=== PATIENT | female | born 1940 | race Caucasian/White ===

== ENCOUNTER 2016-10-29 16:01 | Inpatient (IN) | payer OTHER, MEDICARE ==
[~2016-10-29] VITALS: Ht 167.6 cm; Wt 97.5 kg
[2016-10-29 16:08] VITALS: BP 129/80; PULSE 101; RESP 20; TEMP 99.1; O2SAT 97
[2016-10-29] MEDS ORDERED: SODIUM CHLOR 0.9% 1000 ML INJ 1,000 ML IV SCH ×2 (16:12→18:00)
[2016-10-29] MEDS ORDERED: PANTOPRAZOLE INJ 80 MG in SODIUM CHLORIDE 0.9% INJ 35 ML IV ONE (16:15)
[2016-10-29] MEDS ORDERED: SODIUM CHLORIDE 0.9% FLUSH 5 ML FLUSH IVF PRN (16:15)
[2016-10-29] MEDS ORDERED: LEVO.1 PO (16:15)
[2016-10-29] MEDS ORDERED: LISI-515 PO (16:15)
--- NOTE | 2016-10-29 16:24 | PD ---
HPI Chief Complaint: GI Complaint Time Seen by Provider: 16:12 Travel History International Travel<30 days: No Contact w/Intl Traveler<30days: No Traveled to known affect area: No History of Present Illness HPI 76-year-old female with history of previous GI bleed, previous hernia surgeries with mesh, presents to the ER today because she states that she started having red blood in her stools and bleeding from the rectum starting on Saturday, now is having darker colored blood, melena. She denies any abdominal pain, fevers, vomiting, or other symptoms. She states that she has been having some mild dyspnea on exertion recently. Patient also states that she had seen Dr. bill last week and he had ordered a CT scan on her for evaluation of left lower quadrant abdominal pain where she has her mesh. However, she did not get a chance to go. Modifying Factors: None Associated Signs & Symptoms: Red blood in the stools, GI bleeding Risk Factors: Previous history of GI bleeding PFSH Past Medical History ?: Not Social History Tobacco Use: No Allergies-Medications (Allergen,Severity, Reaction): Coded Allergies: Demerol (Verified Allergy, Severe, Seizures, 10/29/16) Reported Meds & Prescriptions Reported Meds & Active Scripts Active Reported Synthroid (Levothyroxine Sodium) 100 Mcg Tab 100 Mcg PO DAILY Lisinopril 20 Mg Tab 20 Mg PO DAILY Review of Systems Except as stated in HPI: all other systems reviewed are Neg Physical Exam Narrative GENERAL: Well-nourished, well-developed elderly white female patient in no acute distress. SKIN: Warm and dry. HEAD: Normocephalic. EYES: No scleral icterus. No injection or drainage. Pale conjunctiva. NECK: Supple, trachea midline. CARDIOVASCULAR: Regular rate and rhythm without murmurs, gallops, or rubs. RESPIRATORY: Breath sounds equal bilaterally. No accessory muscle use. GASTROINTESTINAL: Abdomen soft, non-tender, nondistended. RECTAL EXAM: No masses or tenderness, stool is maroon, Hemoccult-positive. MUSCULOSKELETAL: No cyanosis, or edema. BACK: Nontender without obvious deformity. No CVA tenderness. Data Data Last Documented VS Vital Signs Date Time Temp Pulse Resp B/P Pulse Ox O2 Delivery O2 Flow Rate FiO2 10/29/16 16:17 20 10/29/16 16:08 99.1 101 129/80 97 Orders Electrocardiogram (10/29/16 ) Complete Blood Count With Diff (10/29/16 16:12) Comprehensive Metabolic Panel (10/29/16 16:12) Lipase (10/29/16 16:12) Prothrombin Time / Inr (Pt) (10/29/16 16:12) Act Partial Throm Time (Ptt) (10/29/16 16:12) Type And Screen (10/29/16 16:12) Ecg Monitoring (10/29/16 16:12) Iv Access Insert/Monitor (10/29/16 16:12) Oximetry (10/29/16 16:12) Sodium Chlor 0.9% 1000 Ml Inj (Ns 1000 M (10/29/16 16:12) Sodium Chloride 0.9% Flush (Ns Flush) (10/29/16 16:15) Pantoprazole Inj (Protonix Inj) (10/29/16 16:15) Pantoprazole Inj (Protonix Inj) (10/29/16 16:15) Red Blood Cells (Rbc) (10/29/16 17:52) Blood Product Administration .UPON TRANSFUSION (10/29/16 17:52) Sodium Chlor 0.9% 250 Ml Inj (Ns 250 Ml (10/29/16 18:00) Admit Order (Ed Use Only) (10/29/16 17:57) Labs Laboratory Tests Test 10/29/16 16:15 White Blood Count 12.8 TH/MM3 Red Blood Count 2.17 MIL/MM3 Hemoglobin 6.6 GM/DL Hematocrit 20.1 % Mean Corpuscular Volume 92.3 FL Mean Corpuscular Hemoglobin 30.5 PG Mean Corpuscular Hemoglobin 33.1 % Concent Red Cell Distribution Width 13.3 % Platelet Count 249 TH/MM3 Mean Platelet Volume 9.4 FL Neutrophils (%) (Auto) 78.0 % Lymphocytes (%) (Auto) 15.0 % Monocytes (%) (Auto) 6.3 % Eosinophils (%) (Auto) 0.3 % Basophils (%) (Auto) 0.4 % Neutrophils # (Auto) 10.0 TH/MM3 Lymphocytes # (Auto) 1.9 TH/MM3 Monocytes # (Auto) 0.8 TH/MM3 Eosinophils # (Auto) 0.0 TH/MM3 Basophils # (Auto) 0.0 TH/MM3 CBC Comment DIFF FINAL Differential Comment Prothrombin Time 10.3 SEC Prothromb Time International 0.9 RATIO Ratio Activated Partial 23.6 SEC Thromboplast Time Sodium Level 134 MEQ/L Potassium Level 4.0 MEQ/L Chloride Level 100 MEQ/L Carbon Dioxide Level 23.1 MEQ/L Anion Gap 11 MEQ/L Blood Urea Nitrogen 30 MG/DL Creatinine 0.97 MG/DL Estimat Glomerular Filtration 56 ML/MIN Rate Random Glucose 166 MG/DL Calcium Level 7.1 MG/DL Protein Corrected Calcium 7.7 MG/DL Total Bilirubin 0.1 MG/DL Aspartate Amino Transf 12 U/L (AST/SGOT) Alanine Aminotransferase 22 U/L (ALT/SGPT) Alkaline Phosphatase 52 U/L Total Protein 5.9 GM/DL Albumin 3.1 GM/DL Lipase 147 U/L Blood Type O NEGATIVE Antibody Screen NEGATIVE Blood Bank Comment MDM Medical Decision Making Medical Screen Exam Complete: Yes Emergency Medical Condition: Yes Medical Record Reviewed: Yes Interpretation(s) Laboratory Tests Test 10/29/16 16:15 White Blood Count 12.8 TH/MM3 (4.0-11.0) Red Blood Count 2.17 MIL/MM3 (4.00-5.30) Hemoglobin 6.6 GM/DL (11.6-15.3) Hematocrit 20.1 % (35.0-46.0) Neutrophils (%) (Auto) 78.0 % (16.0-70.0) Neutrophils # (Auto) 10.0 TH/MM3 (1.8-7.7) Activated Partial 23.6 SEC Thromboplast Time (24.3-30.1) Sodium Level 134 MEQ/L (136-145) Blood Urea Nitrogen 30 MG/DL (7-18) Estimat Glomerular Filtration 56 ML/MIN (>89) Rate Random Glucose 166 MG/DL (74-106) Calcium Level 7.1 MG/DL (8.5-10.1) Protein Corrected Calcium 7.7 MG/DL (8.5-10.1) Total Bilirubin 0.1 MG/DL (0.2-1.0) Aspartate Amino Transf 12 U/L (15-37) (AST/SGOT) Total Protein 5.9 GM/DL (6.4-8.2) Albumin 3.1 GM/DL (3.4-5.0) Differential Diagnosis Blood in the stoolsGI bleeding versus coagulopathy versus hemorrhoidal bleeding Narrative Course Exam is significant for active GI bleeding with Hemoccult-positive stool. 2 large bore IV started, IV fluids, Protonix initiated in the ER. Case was discussed with Dr. Hinkle who is covering for Dr. Ramírez, patient's GI doctor, and he would like the patient to get a GI bleeding scan and with consultation to him. He agrees with above treatment. Case was then discussed with Dr. Kelley for admission. HemaPrompt Point of Care Internal Pos. & Neg. Controls: Passed Fecal Specimen Occult Blood: Positive Diagnosis Primary Impression: GI bleed Admitting Information Admitting Physician Requests: Admit Roberto Kirkpatrick MD Oct 29, 2016 16:24
[2016-10-29 17:32] LABS: BASOPHIL % 0.4 % (0.0-2.0); EOSINOPHIL % 0.3 % (0.0-4.0); LYMPHOCYTE # 1.9 TH/MM3 (1.0-4.8); MEAN CELL VOLUME 92.3 FL (80.0-100.0); MEAN CORPUSCULAR HEMOGLOBIN 30.5 PG (27.0-34.0); MEAN CORPUSCULAR HGB CONC 33.1 % (32.0-36.0); MONO % 6.3 % (0.0-8.0); PLATELET COUNT 249 TH/MM3 (150-450); RED BLOOD COUNT 2.17 MIL/MM3 (4.00-5.30); RED CELL DISTRIBUTION WIDTH 13.3 % (11.6-17.2); WHITE BLOOD COUNT 12.8 TH/MM3 (4.0-11.0)
[2016-10-29 17:36] LABS: HEMO FLAGS DIFF FINAL
[2016-10-29 17:45] LABS: APTT (PATIENT) 23.6 SEC (24.3-30.1); INTERNATIONAL NORMALIZED RATIO 0.9 RATIO; PROTHROMBIN TIME - PATIENT 10.3 SEC (9.8-11.6)
[2016-10-29 17:52] LABS: HEMATOCRIT 20.1 % (35.0-46.0)
[2016-10-29] MEDS ORDERED: SODIUM CHLOR 0.9% 250 ML INJ 250 ML IV ONE (18:00)
[2016-10-29 18:10] LABS: BICARBONATE 23.1 MEQ/L (21.0-32.0); CALCIUM-PROTEIN CORRECTED 7.7 MG/DL (8.5-10.1); TOTAL BILIRUBIN ADULT 0.1 MG/DL (0.2-1.0)
[2016-10-29] MEDS ORDERED: ONDANSETRON HCL 4 MG/2 ML VIAL IV PUSH PRN (18:15)
[2016-10-29] MEDS ORDERED: HYDROmorphone HCL PF 1 MG/ML VIAL IV PUSH PRN (18:15)
--- NOTE | 2016-10-29 18:18 | HHI.HP ---
[facility] Primary Care Physician Dai Russell MD Admission Diagnosis GI bleed Diagnoses: (1) GI bleed Diagnosis: Principal Chief Complaint: rectal bleed Travel History International Travel<30 Days: No Contact w/Intl Traveler <30 Da: No Traveled to Known Affected Are: No History of Present Illness patient is a 76 y/o female with history of GI bleed in the past, presented to ER with rectal bleed. she says that she started to have rectal bleed two days ago. she's had several episodes of rectal bleed since then. she had nausea but no vomiting. she's complaining of mild abdominal cramps. she's weak. she denies any sob or chest pain.she says that she had endoscopy and colonoscopy about eight years ago. she says that she's being followed up by for her hernia and she was supposed to have a CT of the abdomen last week which she had to cancel. Review of Systems Constitutional: COMPLAINS OF: Fatigue, DENIES: Fever, Weight loss, Chills, Night Sweats Eyes: DENIES: Blurred vision, Diplopia, Vision loss, Double Vision Ears, nose, mouth, throat: DENIES: Tinnitus, Vertigo, Throat pain, Epistaxis Respiratory: DENIES: Apneas, Cough, Snoring, Wheezing, Hemoptysis, Sputum production, Shortness of breath Cardiovascular: DENIES: Chest pain, Palpitations, Syncope, Dyspnea on Exertion , PND, Lower Extremity Edema, Orthopnea, Claudication Gastrointestinal: COMPLAINS OF: Bloody stools, Nausea, DENIES: Abdominal pain , Black stools, Constipation, Diarrhea, Vomiting, Difficulty Swallowing, Anorexia Genitourinary: DENIES: Urinary frequency, Urgency, Hematuria, Dysuria Musculoskeletal: DENIES: Joint pain, Muscle aches, Stiffness, Joint Swelling Integumentary: DENIES: Rash Neurologic: DENIES: Abnormal gait, Headache, Localized weakness, Paresthesias, Seizures, Speech Problems, Tremor, Poor Balance Psychiatric: DENIES: Anxiety, Confusion, Mood changes, Depression, Hallucinations, Agitation, Suicidal Ideation, Homicidal Ideation, Delusions Past Family Social History Past Medical History hypertension GI bleed in the past hypothyroidism Past Surgical History hernia repair laparotomy Reported Medications lisinopril hypothyroidism Allergies: Coded Allergies: Demerol (Verified Allergy, Severe, Seizures, 10/29/16) Active Ordered Medications Current Medications Sodium Chloride (NS 1000 ml Inj) 1,000 ml @ 1,000 mls/hr Q1H IV ; Start at 16:12; Stop 10/29/16 at 17:11; Status DC IV Flush 2 ml 2 ml UNSCH PRN IVF FLUSH AFTER USING IV ACCESS; Start 10/29/16 at 16:15 Pantoprazole Sodium 80 mg/ Sodium Chloride 35 ml @ 420 mls/hr ONCE ONCE IV ; Start 10/29/16 at 16:15; Stop 10/29/16 at 16:19; Status DC Pantoprazole Sodium 80 mg/ Sodium Chloride 100 ml @ 10 mls/hr Q10H IV ; Start 10/29/16 at 16:15 Sodium Chloride (NS 250 ml Inj) 250 ml @ 15 mls/hr ONCE ONCE IV ; Start at 18:00; Stop 10/30/16 at 10:39 Pantoprazole Sodium 40 mg 40 mg Q12H IV PUSH ; Start 10/30/16 at 06:00; Status UNV Sodium Chloride (NS 1000 ml Inj) 1,000 ml @ 80 mls/hr [id number] IV ; Start at 18:00; Status UNV Family History heart disease Social History doesn't smoke. drinks occasionally. Physical Exam Vital Signs Vital Signs Date Time Temp Pulse Resp B/P Pulse Ox O2 Delivery O2 Flow Rate FiO2 10/29/16 16:17 20 10/29/16 16:08 99.1 101 20 129/80 97 Physical Exam GENERAL: This is a well-nourished, well-developed patient, in no apparent distress. SKIN: No rashes, ecchymoses or lesions. Cool and dry. HEAD: Atraumatic. Normocephalic. No temporal or scalp tenderness. EYES: Pupils equal round and reactive. Extraocular motions intact. No scleral icterus. No injection or drainage. ENT: Nose without bleeding, purulent drainage or septal hematoma. Throat without erythema, tonsillar hypertrophy or exudate. Uvula midline. Airway patent. NECK: Trachea midline. No JVD or lymphadenopathy. Supple, nontender, no meningeal signs. CARDIOVASCULAR: Regular rate and rhythm without murmurs, gallops, or rubs. RESPIRATORY: Clear to auscultation. Breath sounds equal bilaterally. No wheezes , rales, or rhonchi. GASTROINTESTINAL: Abdomen soft, non-tender, nondistended. No hepato-splenomegaly , or palpable masses. No guarding. MUSCULOSKELETAL: Extremities without clubbing, cyanosis, or edema. No joint tenderness, effusion, or edema noted. No calf tenderness. Negative Homans sign bilaterally. NEUROLOGICAL: Awake and alert. Cranial nerves II through XII intact. Motor and sensory grossly within normal limits. Five out of 5 muscle strength in all muscle groups. Normal speech. Laboratory Laboratory Tests Test 10/29/16 16:15 White Blood Count 12.8 Red Blood Count 2.17 Hemoglobin 6.6 Hematocrit 20.1 Mean Corpuscular Volume 92.3 Mean Corpuscular Hemoglobin 30.5 Mean Corpuscular Hemoglobin 33.1 Concent Red Cell Distribution Width 13.3 Platelet Count 249 Mean Platelet Volume 9.4 Neutrophils (%) (Auto) 78.0 Lymphocytes (%) (Auto) 15.0 Monocytes (%) (Auto) 6.3 Eosinophils (%) (Auto) 0.3 Basophils (%) (Auto) 0.4 Neutrophils # (Auto) 10.0 Lymphocytes # (Auto) 1.9 Monocytes # (Auto) 0.8 Eosinophils # (Auto) 0.0 Basophils # (Auto) 0.0 CBC Comment DIFF FINAL Differential Comment Prothrombin Time 10.3 Prothromb Time International 0.9 Ratio Activated Partial 23.6 Thromboplast Time Blood Type O NEGATIVE Blood Bank Comment Result Diagram: 10/29/16 1615 Assessment and Plan Assessment and Plan A/P -rectal bleed NPO for now- start IV fluid and Protonix- H/H monitoring- GI evaluation -anemia due to GI bleed will transfuse with PRBC- close monitoring of H/H -hypertension/hypothyroidism; hold home meds for now -DVT prophylaxis with SCD's- no chemical prophylaxis due to GI bleed Discussed Condition With ER physician and the patient. Physician Certification 2 Midnight Certification Type: Admission for Inpatient Services Order for Inpatient Services The services are ordered in accordance with Medicare regulations or non- Medicare payer requirements, as applicable. In the case of services not specified as inpatient-only, they are appropriately provided as inpatient services in accordance with the 2-midnight benchmark. Estimated LOS (days): 2 days is the estimated time the patient will need to remain in the hospital, assuming treatment plan goals are met and no additional complications. Post-Hospital Plan: Home Problem Qualifiers (1) GI bleed: Qualified Code: K62.5 - Gastrointestinal hemorrhage associated with anorectal source Twila Clay MD Oct 29, 2016 18:18
[2016-10-29] MEDS: PANTOPRAZOLE INJ 80 MG in SODIUM CHLORIDE 0.9% INJ 100 ML IV SCH (18:45)
[2016-10-29 19:26] VITALS: BP 85/53; PULSE 89; RESP 18; TEMP 98.3; O2SAT 95
[2016-10-29 19:46] VITALS: BP 96/54; PULSE 84; RESP 18; TEMP 98.1; O2SAT 95
[2016-10-29 22:25] VITALS: BP 128/57; TEMP 98.1
--- NOTE | 2016-10-29 22:52 | RADRPT ---
EXAM DATE/TIME: 10/29/2016 20:16 [facility] COMPARISON: No previous studies available for comparison. INDICATIONS : Rectal bleeding with abdominal cramping for two days. DOSE: 20.1 mCi Tc99m Ultratag labeled red blood cells IV IMAGIN hrs MEDICAL HISTORY : Hypertension. Hypothyroidism. SURGICAL HISTORY : Umbilical hernia repair. Laparotomy. ENCOUNTER: Initial ACUITY: 2 days PAIN SCALE: 5/10 LOCATION: Left Abdomen. TECHNIQUE: Following the modified in vitro labeling of autologous red cells, dynamic continuous images were acqu ired for the specified interval. FINDINGS: BIODISTRIBUTION: There is a very good labeling of red cells without significant uptake in the gastric wall. There is good delineation of the blood pool of the spleen and abdominal vessels. BLEEDING: At approximately 1 hour and 20 minutes a focus of activity develops in the right upper quadrant and f ollows the transverse colon left colon characteristic of colonic bleeding. CONCLUSION: Examination reveals a focus of active bleeding in the right upper quadrant at the hepatic flexure of the colon. Jonathon Huizar MD on October 29, 2016 at 22:48 Board Certified Radiologist. This report was verified electronically.
[2016-10-30] VITALS (8 sets, daily range): BP systolic 99–138; BP diastolic 52–90; PULSE 75–96; RESP 16–19; TEMP 97.1–99.1; O2SAT 96–100
[2016-10-30] MEDS: PANTOPRAZOLE INJ 80 MG in SODIUM CHLORIDE 0.9% INJ 100 ML IV SCH (02:17)
[2016-10-30] MEDS ORDERED: PANTOPRAZOLE SODIUM 40 MG VIAL IV PUSH SCH (06:00)
[2016-10-30 06:07] LABS: HEMATOCRIT 22.4 % (35.0-46.0)
--- NOTE | 2016-10-30 10:48 | HHI.PR ---
Subjective Remarks in no acute distress. had one episode of rectal bleed last night. no chest pain or sob. receiving PRBC transfusion. Objective Vitals Vital Signs Date Time Temp Pulse Resp B/P Pulse Ox O2 Delivery O2 Flow Rate FiO2 10/30/16 10:00 97.3 10/30/16 08:00 97.8 85 19 112/58 97 10/30/16 03:58 98.0 76 17 99/52 97 10/30/16 00:00 98.1 96 17 131/58 96 10/29/16 22:25 98.1 90 19 128/57 96 10/29/16 19:46 98.1 84 18 96/54 95 Room Air 10/29/16 19:26 98.3 89 18 85/53 95 Room Air 10/29/16 16:17 20 10/29/16 16:08 99.1 101 20 129/80 97 Result Diagram: 10/30/16 0551 10/29/16 1615 Imaging Last Impressions GI Bleed Scan Nuclear Medicine 10/29/16 0000 Signed Impressions: Service Date/Time: Saturday, October 29, 2016 20:16 - CONCLUSION: Examination reveals a focus of active bleeding in the right upper quadrant at the hepatic flexure of the colon. Jonathon Huizar MD Objective Remarks GENERAL: This is a well-nourished, well-developed patient, in no apparent distress. CARDIOVASCULAR: Regular rate and regular rhythm without murmurs, gallops, or rubs. RESPIRATORY: Clear to auscultation. Breath sounds equal bilaterally. No wheezes , rales, or rhonchi. GASTROINTESTINAL: Abdomen soft, non-tender, nondistended. Normal, active bowel sounds MUSCULOSKELETAL: Extremities without clubbing, cyanosis, or edema. NEURO: Alert & Oriented x4 to person, place, time, situation. Moves all ext x4 Procedures none Medications and IVs Current Medications Sodium Chloride (NS 1000 ml Inj) 1,000 ml @ 1,000 mls/hr Q1H IV Last administered on 10/29/16t 18:44; Start 10/29/16 at 16:12; Stop 10/29/16 at 17:11 ; Status DC IV Flush 2 ml 2 ml UNSCH PRN IVF FLUSH AFTER USING IV ACCESS; Start 10/29/16 at 16:15 Pantoprazole Sodium 80 mg/ Sodium Chloride 35 ml @ 420 mls/hr ONCE ONCE IV Last administered on 10/29/16 18:45; Start 10/29/16 at 16:15; Stop 10/29/16 at 16:19; Status DC Pantoprazole Sodium 80 mg/ Sodium Chloride 100 ml @ 10 mls/hr Q10H IV Last administered on 10/30/16 02:17; Start 10/29/16 at 16:15; Stop 10/30/16 at 10:34 ; Status DC Sodium Chloride (NS 250 ml Inj) 250 ml @ 15 mls/hr ONCE ONCE IV Last administered on 10/29/16 19:39; Start 10/29/16 at 18:00; Stop 10/30/16 at 10:39 ; Status DC Pantoprazole Sodium 40 mg 40 mg Q12H IV PUSH ; Start 10/30/16 at 06:00; Stop at 06:00; Status DC Sodium Chloride (NS 1000 ml Inj) 1,000 ml @ 80 mls/hr [id number] IV ; Start at 18:00 Ondansetron HCl (Zofran Inj) 4 mg Q8HR PRN IV PUSH NAUSEA; Start 10/29/16 at 18 :15 Hydromorphone HCl 0.2 mg 0.2 mg Q4H PRN IV PUSH PAIN; Start 10/29/16 at 18:15 Dextrose/Lactated Ringer's (D5-Lr Inj) 1,000 ml @ 20 mls/hr Q24H IV ; Start at 10:32; Stop 10/31/16 at 10:31; Status UNV Polyethylene Glycol/ Electrolytes (Colyte Liq) 2,000 ml Q8H PO ; Start 10/30/16 at 18:45; Stop 10/31/16 at 02:46; Status UNV A/P Assessment and Plan A/P -rectal bleed continue IV Protonix- H/H monitoring- GI consulted. -anemia due to GI bleed will transfuse with PRBC- close monitoring of H/H -hypertension/hypothyroidism; hold home meds for now -DVT prophylaxis with SCD's- no chemical prophylaxis due to GI bleed Twila Clay MD Oct 30, 2016 10:48
[2016-10-30] MEDS ORDERED: METOPROLOL TARTRATE 25 MG TAB PO PRN (11:45)
[2016-10-30] MEDS ORDERED: INSULIN HUMAN REGULAR 1,000 UNITS/10 ML VIAL SQ PRN (11:45)
[2016-10-30] MEDS ORDERED: SODIUM CHLORID 0.9% 500 ML IV SCH (11:45)
[2016-10-30] MEDS ORDERED: DEXTROSE 5%-LACTATED RING INJ 1,000 ML IV SCH (12:00)
--- NOTE | 2016-10-30 13:12 | MB ---
cc: INA PALOMARES DATE OF CONSULTATION 10/30/2016 DATE OF 1940 REASON FOR CONSULTATION GI bleeding HISTORY OF PRESENT ILLNESS Ms. Martinez is a very pleasant 76-year-old lady with a past medical history significant for hypertension, hypothyroidism, arthritis, and diverticulosis who presented to the hospital with complaints of rectal bleeding for the past three days. She reports bleeding started last Saturday, has had multiple bowel movements of stool mixed with sometime bright red blood and other times it looked a little bit darker. She denies any significant associated abdominal pain, however, does have some cramping before she has a bowel movement. She had a similar episode about eight years ago, at that time she had a colonoscopy, but they could not determine the cause of the bleed. She does have a history of diverticulosis throughout her colon. She does have a history of abdominal hernias for which she follows with a surgeon and was supposed to complete a CT of the abdomen, but this does not cause significant pain. She reports her last bleeding episode was last night, has not had a repeat episode this morning. She did have a bleeding scan done over at night showing a focus of active bleeding in the right upper quadrant at the hepatic flexure. Upon arrival, she had a hemoglobin of 6.6 which improved to 7.7 after three units of packed red blood cells. She was hypotensive on arrival, but responded well resuscitation with IV fluids and is currently hemodynamically stable. PAST MEDICAL HISTORY Significant for: 1. Hypertension 2. Hypothyroidism 3. Diverticulosis 4. Arthritis 5. Abdominal hernias PAST SURGICAL HISTORY Significant for: 1. Right knee repair 2. Hernia repairs 3. Colonoscopy REPORTED MEDICATIONS She takes lisinopril and Synthroid. ALLERGIES She is allergic TO DEMEROL. SOCIAL HISTORY She denies any tobacco or drug use. She drinks occasionally. FAMILY HISTORY Only significant for heart disease in the family. REVIEW OF SYSTEMS Positive for abdominal cramping and hematochezia and weakness. Otherwise a 14-point review of systems is negative. PHYSICAL EXAMINATION VITAL SIGNS: Temperature is 97.3, pulse of 85, heart rate of 19, blood pressure 112/58, sating 97% on room air. GENERAL: She is a well-developed female in no acute distress lying comfortably in bed. HEENT: Normocephalic, atraumatic. Nonicteric sclera. Moist mucosa. NECK: Supple. No JVD. No lymphadenopathy. NECK: Supple. No edema or lymphadenopathy. CARDIOVASCULAR: Regular rhythm and rate. S1 and S2 without murmurs, rubs or gallops. PULMONARY: Clear to auscultation bilaterally. No wheezing or rhonchi. ABDOMEN: Soft. Mild tenderness to palpation in the left upper quadrant. No rebound or guarding. No hepatosplenomegaly appreciated. Bowel sounds are present in all quadrants. EXTREMITIES: No cyanosis or edema. +2 pulses bilaterally. NEUROLOGIC: She is alert and oriented x3. Cranial nerves are intact. Strength 5/5 throughout. No focal deficits. LABORATORY DATA White blood cell count is 12.8, hemoglobin of 7.7, hematocrit is 22.4, platelet count of 249. Sodium 134, potassium 4, chloride 100, BUN 30, creatinine 0.97, total bilirubin 0.1, AST is 12, ALT is 22, alkaline phosphatase 52, lipase 147, INR of 0.9. IMAGING STUDIES She had a GI bleeding scan showing focus of active bleeding in the right upper quadrant and hepatic flexure of the colon. ASSESSMENT/PLAN Ms. Martinez is a pleasant 76-year-old lady with a past medical history significant for hypertension, hypothyroidism, arthritis and diverticulosis presenting with a three days history of hematochezia. On arrival, she was found to be anemic with a hemoglobin of 6.6 that has responded to transfusions, she also was hypotensive and responded to resuscitation with IV fluids currently hemodynamically stable. Last episode of GI bleeding was last night. Bleeding scan was showing an active focus in the hepatic flexure. PLAN GI bleeding, based on imaging, the most likely source is the colon. It could be secondary to a diverticular bleed due to the patient's history of diverticulosis. Other possibilities are AVM's, Dieulafoy's lesion or malignancy. RECOMMENDATIONS Recommend to continue supportive care, monitor H&H every eight hours and transfuse as needed to keep hemoglobin above 7. Can discontinue Protonix drip at this time since there is a low suspicion for an upper GI source. We will plan to perform a colonoscopy tomorrow, we will prep tonight with UZIEL. The patient can be kept on the clear liquid diet and placed n.p.o. at midnight for procedures tomorrow. If the patient becomes unstable, would recommend for IR consult for possible rehabilitation. All other medical problems to be addressed by primary team. We would like to thank Dr. Clay for this consultation and letting us participate in the care of Ms. Martinez. We will follow the patient with you. Please call us with any question or concerns. MD CHARAN Martínez/YASMANI /12:10 PM /12:52 PM
--- NOTE | 2016-10-30 16:40 | EKG ---
Date Performed: 10/29/2016 Time Performed: 16:14:45 PTAGE: 76 years EKG: Sinus rhythm NORMAL ECG NO PREVIOUS TRACING DOCTOR: Isabel Sierra Interpretating Date/Time 10/30/2016 16:35:37
[2016-10-30 16:54] LABS: HEMATOCRIT 21.1 % (35.0-46.0)
[2016-10-30] MEDS: PEG (High)/E-LYTE SOLN 4000 ML BTL PO SCH ×2 (18:00→23:49)
[2016-10-31] VITALS (11 sets, daily range): BP systolic 115–141; BP diastolic 55–71; PULSE 69–85; RESP 16–20; TEMP 96.1–98.4; O2SAT 95–99
[2016-10-31 00:54] LABS: HEMATOCRIT 18.4 % (35.0-46.0)
[2016-10-31] MEDS ORDERED: SODIUM CHLOR 0.9% 250 ML INJ 250 ML IV ONE (01:15)
[2016-10-31] MEDS ORDERED: FUROSEMIDE 20 MG/2 ML VIAL IV ONE (01:15)
--- NOTE | 2016-10-31 08:12 | HHI.PR ---
Subjective Remarks in no acute distress but feels weak. mild abdominal pain. says that she had a few episodes of rectal bleed last night. no chest pain or sob. Objective Vitals Vital Signs Date Time Temp Pulse Resp B/P Pulse Ox O2 Delivery O2 Flow Rate FiO2 10/31/16 03:45 98.0 75 16 115/55 96 10/31/16 02:30 97.9 84 17 121/57 95 10/31/16 02:15 97.6 85 16 141/65 96 10/31/16 00:00 97.4 81 17 123/61 96 10/30/16 20:00 99.1 80 16 123/76 98 10/30/16 16:05 97.2 84 19 128/62 97 10/30/16 12:00 97.1 86 18 138/90 100 10/30/16 10:00 97.3 I/O 10/30/16 10/30/16 10/30/16 10/31/16 10/31/16 10/31/16 07:00 15:00 23:00 07:00 15:00 23:00 Intake Total 360 ml Balance 360 ml Intake Oral 360 ml # Voids 4 1 # Bowel Movements 3 Result Diagram: 10/31/16 0016 10/29/16 1615 Imaging Last Impressions GI Bleed Scan Nuclear Medicine 10/29/16 0000 Signed Impressions: Service Date/Time: Saturday, October 29, 2016 20:16 - CONCLUSION: Examination reveals a focus of active bleeding in the right upper quadrant at the hepatic flexure of the colon. Jonathon Huizar MD Objective Remarks GENERAL: This is a well-nourished, well-developed patient, in no apparent distress. CARDIOVASCULAR: Regular rate and regular rhythm without murmurs, gallops, or rubs. RESPIRATORY: Clear to auscultation. Breath sounds equal bilaterally. No wheezes , rales, or rhonchi. GASTROINTESTINAL: Abdomen soft, non-tender, nondistended. Normal, active bowel sounds MUSCULOSKELETAL: Extremities without clubbing, cyanosis, or edema. NEURO: Alert & Oriented x4 to person, place, time, situation. Moves all ext x4 Procedures none Medications and IVs Current Medications Sodium Chloride (NS 1000 ml Inj) 1,000 ml @ 1,000 mls/hr Q1H IV Last administered on 10/29/16t 18:44; Start 1/23/17 at 16:12; Stop 10/29/16 at 17:11 ; Status DC IV Flush 2 ml 2 ml UNSCH PRN IVF FLUSH AFTER USING IV ACCESS; Start 10/29/16 at 16:15 Pantoprazole Sodium 80 mg/ Sodium Chloride 35 ml @ 420 mls/hr ONCE ONCE IV Last administered on 10/29/16 18:45; Start 10/29/16 at 16:15; Stop 10/29/16 at 16:19; Status DC Pantoprazole Sodium 80 mg/ Sodium Chloride 100 ml @ 10 mls/hr Q10H IV Last administered on 10/30/16 02:17; Start 10/29/16 at 16:15; Stop 10/30/16 at 10:34 ; Status DC Sodium Chloride (NS 250 ml Inj) 250 ml @ 15 mls/hr ONCE ONCE IV Last administered on 10/29/16 19:39; Start 10/29/16 at 18:00; Stop 10/30/16 at 10:39 ; Status DC Pantoprazole Sodium 40 mg 40 mg Q12H IV PUSH ; Start 10/30/16 at 06:00; Stop at 06:00; Status DC Sodium Chloride (NS 1000 ml Inj) 1,000 ml @ 80 mls/hr [id number] IV ; Start at 18:00; Stop 10/30/16 at 11:37; Status DC Ondansetron HCl (Zofran Inj) 4 mg Q8HR PRN IV PUSH NAUSEA Last administered on 10/30/16 22:35; Start 10/29/16 at 18:15 Hydromorphone HCl 0.2 mg 0.2 mg Q4H PRN IV PUSH PAIN; Start 10/29/16 at 18:15 Dextrose/Lactated Ringer's (D5-Lr Inj) 1,000 ml @ 20 mls/hr Q24H IV Last administered on 10/30/16 12:00; Start 10/30/16 at 12:00; Stop 10/31/16 at 11:59 Polyethylene Glycol/ Electrolytes 2000 ml 2,000 ml Q8H PO Last administered on 10/30/16 18:00; Start 10/30/16 at 18:00; Stop 10/31/16 at 02:01; Status DC Lactated Ringer's 1,000 ml @ 30 mls/hr Q24H IV ; Start 10/30/16 at 11:45 Sodium Chloride (NS 500 ml Inj) 500 ml @ 30 mls/hr [id number] IV ; Start 10/30/16 at 11:45; Stop 10/31/16 at 11:44 Insulin Human Regular (NovoLIN R INJ) See Protocol Table ... UNSCH X1 PRN SQ SEE PROTOCOL; Start 10/30/16 at 11:45; Stop 10/31/16 at 11:44 Metoprolol Tartrate 25 mg 25 mg UNSCH X1 PRN PO SEE LABEL COMMENTS; Start 10/30 at 11:45; Stop 10/31/16 at 11:44 Sodium Chloride (NS 250 ml Inj) 250 ml @ 15 mls/hr ONCE ONCE IV Last administered on 10/31/16 02:15; Start 10/31/16 at 01:15; Stop 10/31/16 at 17:54 Furosemide (Lasix Inj) 20 mg ONCE ONCE IV Last administered on 10/31/16 04:42 ; Start 10/31/16 at 01:15; Stop 10/31/16 at 01:16; Status DC A/P Assessment and Plan A/P -rectal bleed continue IV Protonix- H/H monitoring- GI consulted. plan for colonoscopy today. -anemia due to GI bleed- with recurrent drop in H/H will transfuse with PRBC- close monitoring of H/H -hypertension/hypothyroidism; hold home meds for now -DVT prophylaxis with SCD's- no chemical prophylaxis due to GI bleed Twila Clay MD Oct 31, 2016 08:12
[2016-10-31 09:21] LABS: BASOPHIL % 0.5 % (0.0-2.0); EOSINOPHIL # 0.2 TH/MM3 (0-0.4); EOSINOPHIL % 2.7 % (0.0-4.0); HEMATOCRIT 28.7 % (35.0-46.0); HEMO FLAGS DIFF FINAL; LYMPH % 22.2 % (9.0-44.0); MEAN CELL VOLUME 86.8 FL (80.0-100.0); MEAN CORPUSCULAR HEMOGLOBIN 29.8 PG (27.0-34.0); MEAN CORPUSCULAR HGB CONC 34.3 % (32.0-36.0); NEUT % 66.6 % (16.0-70.0); PLATELET COUNT 140 TH/MM3 (150-450); RED BLOOD COUNT 3.31 MIL/MM3 (4.00-5.30); RED CELL DISTRIBUTION WIDTH 15.3 % (11.6-17.2)
[2016-10-31] MEDS: LACTATED RINGER'S 1000 ML IV SCH (11:25)
[2016-10-31 13:31] LABS: HEMATOCRIT 26.1 % (35.0-46.0)
[2016-10-31] MEDS ORDERED: PROPOFOL 200 MG/20 ML AMP IV ONE (16:13)
--- NOTE | 2016-10-31 16:56 | HHI.GIFU ---
Subjective Remarks Pt reported 4 bloody BM's before starting bowel prep. Reports mild LLQ abdominal pain. Objective Vitals I&O Vital Signs Date Time Temp Pulse Resp B/P Pulse Ox O2 Delivery O2 Flow Rate FiO2 10/31/16 15:10 97.7 74 16 128/58 95 10/31/16 12:36 78 10/31/16 12:00 97.7 74 18 126/66 95 10/31/16 08:00 97.8 75 17 128/58 95 10/31/16 03:45 98.0 75 16 115/55 96 10/31/16 02:30 97.9 84 17 121/57 95 10/31/16 02:15 97.6 85 16 141/65 96 10/31/16 00:00 97.4 81 17 123/61 96 10/30/16 20:00 99.1 80 16 123/76 98 I/O 10/30/16 10/30/16 10/30/16 10/31/16 10/31/16 10/31/16 07:00 15:00 23:00 07:00 15:00 23:00 Intake Total 360 ml 250 ml Balance 360 ml 250 ml Intake Oral 360 ml Packed Cells 250 ml # Voids 4 1 # Bowel Movements 3 Laboratory Laboratory Tests Test 10/31/16 10/31/16 10/31/16 10/31/16 00:16 01:06 05:09 08:53 Hemoglobin 6.2 9.9 Hematocrit 18.4 28.7 Blood Type O NEGATIVE Crossmatch Leukocyte-Reduced Leukocyte-Reduced Red Blood Red Blood Cells Cells Blood Bank Comment White Blood Count 9.0 Red Blood Count 3.31 Mean Corpuscular Volume 86.8 Mean Corpuscular Hemoglobin 29.8 Mean Corpuscular Hemoglobin 34.3 Concent Red Cell Distribution Width 15.3 Platelet Count 140 Mean Platelet Volume 9.1 Neutrophils (%) (Auto) 66.6 Lymphocytes (%) (Auto) 22.2 Monocytes (%) (Auto) 8.0 Eosinophils (%) (Auto) 2.7 Basophils (%) (Auto) 0.5 Neutrophils # (Auto) 6.0 Lymphocytes # (Auto) 2.0 Monocytes # (Auto) 0.7 Eosinophils # (Auto) 0.2 Basophils # (Auto) 0.0 CBC Comment DIFF FINAL Differential Comment Test 10/31/16 12:50 Hemoglobin 8.8 Hematocrit 26.1 Physical Exam HEENT: Pupils round and reactive to light; normocephalic; atraumatic; no jaundice. Throat is clear. NECK: Neck is supple, no JVD, no lymphadenopathy. ABDOMEN: Soft, nondistended, nontender; no hepatosplenomegaly; bowel sounds are present in all four quadrants. EXTREMITIES: No clubbing, cyanosis, or edema. SKIN: Normal; no rash; no jaundice. FRUIT HARVESTER: No focal deficits; alert and oriented times three. Assessment and Plan Assessment: (1) Anemia (2) GI bleed Plan 1. GI bleeding/anemia - possible diverticular bleed based on history, other possible causes are AVM's , Dieulafoy lesion or ischemia. - monitor H&H q8h, transfuse as needed to keep hb >7 - plan for colonoscopy today - avoid NSAID's or anticoagulants Problem Qualifiers (1) GI bleed: Qualified Code: K62.5 - Gastrointestinal hemorrhage associated with anorectal source Gerald Pace MD Oct 31, 2016 16:56
--- NOTE | 2016-10-31 17:06 | PD.PROCEDR ---
GI Procedure PROCEDURE DATE: Oct 31, 2016 INDICATION FOR PROCEDURE Hematochezia PROCEDURE: The procedure, risks and benefits were discussed with Ms. Martinez and informed consent was obtained. Anesthesia sedated her with Diprivan. She was placed in the left lateral decubitus position. Colonoscopy: The Pentax videoscope was introduced through the rectum and advanced to []. Retroflexion was performed in the rectum. Colonic prep was [] FINDINGS: - large amount of blood throughout the entire colon. No active focus of bleeding identified. - severe diverticulosis in the entire colon. IMPRESSION: - severe diverticulosis in entire colon - large amount of blood noted throughout colon, no active focus of bleeding identified PLAN: - full liquid diet tonight - continue supportive care - monitor H&H q 12h - if significant bleeding continues, recommend IR consult for possible angiogram and embolization - consider surgery consult Gerald Pace MD Oct 31, 2016 17:05
[2016-10-31 19:00] LABS: HEMATOCRIT 27.1 % (35.0-46.0)
[2016-10-31] MEDS ORDERED: ALPRAZolam 0.25 MG TAB PO ONE (20:15)
[2016-10-31] MEDS ORDERED: PILL SPLITTER OTHER PRN (20:15)
[2016-11-01] VITALS (8 sets, daily range): BP systolic 111–185; BP diastolic 58–76; PULSE 70–89; RESP 16–20; TEMP 97–98.7; O2SAT 96–100
[2016-11-01 01:16] LABS: HEMATOCRIT 23.2 % (35.0-46.0)
[2016-11-01] MEDS: LEVOTHYROXINE SODIUM 100 MCG TAB PO SCH (05:19)
[2016-11-01 07:44] LABS: HEMATOCRIT 23.8 % (35.0-46.0)
[2016-11-01 07:57] LABS: BICARBONATE 26.1 MEQ/L (21.0-32.0); POTASSIUM 3.5 MEQ/L (3.5-5.1)
[2016-11-01 08:14] LABS: CALCIUM-PROTEIN CORRECTED 7.5 MG/DL (8.5-10.1)
--- NOTE | 2016-11-01 10:02 | HHI.GIFU ---
Subjective Remarks Pt reports minimal amount of rectal bleeding after procedure. Continues to have some abdominal discomfort in LUQ. Objective Vitals I&O Vital Signs Date Time Temp Pulse Resp B/P Pulse Ox O2 Delivery O2 Flow Rate FiO2 11/01/16 08:00 97.0 81 20 185/76 96 11/01/16 04:32 98.7 70 16 132/66 100 11/01/16 00:24 97.6 74 16 141/65 100 10/31/16 23:00 69 10/31/16 20:13 98.4 77 20 99 10/31/16 17:10 75 16 140/86 96 10/31/16 17:00 75 16 134/72 96 10/31/16 16:50 98.1 83 15 136/71 94 10/31/16 15:10 97.7 74 16 128/58 95 10/31/16 14:00 96.1 80 19 137/71 98 10/31/16 12:36 78 10/31/16 12:00 97.7 74 18 126/66 95 I/O 10/31/16 10/31/16 10/31/16 11/01/16 11/01/16 11/01/16 07:00 15:00 23:00 07:00 15:00 23:00 Intake Total 250 ml 1000 ml 360 ml Balance 250 ml 1000 ml 360 ml Intake Oral 700 ml 360 ml Packed Cells 250 ml Other 300 ml # Voids 1 5 3 # Bowel Movements 0 0 Laboratory Laboratory Tests Test 10/31/16 10/31/16 11/01/16 11/01/16 12:50 18:44 00:57 07:05 Hemoglobin 8.8 9.3 8.2 8.4 Hematocrit 26.1 27.1 23.2 23.8 Sodium Level 138 Potassium Level 3.5 Chloride Level 104 Carbon Dioxide Level 26.1 Anion Gap 8 Blood Urea Nitrogen 12 Creatinine 0.76 Estimat Glomerular Filtration 74 Rate Random Glucose 136 Calcium Level 6.4 Protein Corrected Calcium 7.5 Total Protein 4.8 Physical Exam HEENT: Pupils round and reactive to light; normocephalic; atraumatic; no jaundice. Throat is clear. NECK: Neck is supple, no JVD, no lymphadenopathy. ABDOMEN: Soft, nondistended, nontender; no hepatosplenomegaly; bowel sounds are present in all four quadrants. EXTREMITIES: No clubbing, cyanosis, or edema. SKIN: Normal; no rash; no jaundice. DIRECTOR IMMUNOLOGY: No focal deficits; alert and oriented times three. Assessment and Plan Assessment: (1) Anemia (2) GI bleed Plan 1. GI bleeding/anemia - most likely diverticular bleed, colonoscopy with large amount of blood and severe diverticulosis throughout the colon, no active focus of bleed identified. - monitor H&H q12h, transfuse as needed to keep hb >7 - avoid NSAID's or anticoagulants - can advance diet and monitor. If bleeding continues would recommend IR consult for possible angiogram with embolization - if hb remains stable and pt tolerated diet she could be discharge from GI standpoint in AM 2. All other medical problems to be addressed by primary team Problem Qualifiers (1) GI bleed: Qualified Code: K62.5 - Gastrointestinal hemorrhage associated with anorectal source Gerald Pace MD Nov 01, 2016 10:02
--- NOTE | 2016-11-01 11:28 | HHI.PR ---
Subjective Remarks resting comfortably with no distress. has mild LLQ pain. had some further rectal bleed earlier today. no chest pain or sob. Objective Vitals Vital Signs Date Time Temp Pulse Resp B/P Pulse Ox O2 Delivery O2 Flow Rate FiO2 11/01/16 08:00 97.0 81 20 185/76 96 11/01/16 04:32 98.7 70 16 132/66 100 11/01/16 00:24 97.6 74 16 141/65 100 10/31/16 23:00 69 10/31/16 20:13 98.4 77 20 99 10/31/16 17:10 75 16 140/86 96 10/31/16 17:00 75 16 134/72 96 10/31/16 16:50 98.1 83 15 136/71 94 10/31/16 15:10 97.7 74 16 128/58 95 10/31/16 14:00 96.1 80 19 137/71 98 10/31/16 12:36 78 10/31/16 12:00 97.7 74 18 126/66 95 I/O 10/31/16 10/31/16 10/31/16 11/01/16 11/01/16 11/01/16 07:00 15:00 23:00 07:00 15:00 23:00 Intake Total 250 ml 1000 ml 360 ml Balance 250 ml 1000 ml 360 ml Intake Oral 700 ml 360 ml Packed Cells 250 ml Other 300 ml # Voids 1 5 3 # Bowel Movements 0 0 Result Diagram: 11/01/16 0705 11/01/16 0705 Imaging Last Impressions GI Bleed Scan Nuclear Medicine 10/29/16 0000 Signed Impressions: Service Date/Time: Saturday, October 29, 2016 20:16 - CONCLUSION: Examination reveals a focus of active bleeding in the right upper quadrant at the hepatic flexure of the colon. Jonathon Huizar MD Objective Remarks GENERAL: This is a well-nourished, well-developed patient, in no apparent distress. CARDIOVASCULAR: Regular rate and regular rhythm without murmurs, gallops, or rubs. RESPIRATORY: Clear to auscultation. Breath sounds equal bilaterally. No wheezes , rales, or rhonchi. GASTROINTESTINAL: Abdomen soft, non-tender, nondistended. Normal, active bowel sounds MUSCULOSKELETAL: Extremities without clubbing, cyanosis, or edema. NEURO: Alert & Oriented x4 to person, place, time, situation. Moves all ext x4 Procedures colonoscopy Medications and IVs Current Medications Sodium Chloride (NS 1000 ml Inj) 1,000 ml @ 1,000 mls/hr Q1H IV Last administered on 10/29/16 18:44; Start 10/29/16 at 16:12; Stop 10/29/16 at 17:11 ; Status DC IV Flush 2 ml 2 ml UNSCH PRN IVF FLUSH AFTER USING IV ACCESS; Start 10/29/16 at 16:15 Pantoprazole Sodium 80 mg/ Sodium Chloride 35 ml @ 420 mls/hr ONCE ONCE IV Last administered on 10/29/16 18:45; Start 10/29/16 at 16:15; Stop 10/29/16 at 16:19; Status DC Pantoprazole Sodium 80 mg/ Sodium Chloride 100 ml @ 10 mls/hr Q10H IV Last administered on 10/30/16 02:17; Start 10/29/16 at 16:15; Stop 10/30/16 at 10:34 ; Status DC Sodium Chloride (NS 250 ml Inj) 250 ml @ 15 mls/hr ONCE ONCE IV Last administered on 10/29/16 19:39; Start 10/29/16 at 18:00; Stop 10/30/16 at 10:39 ; Status DC Pantoprazole Sodium 40 mg 40 mg Q12H IV PUSH ; Start 10/30/16 at 06:00; Stop at 06:00; Status DC Sodium Chloride (NS 1000 ml Inj) 1,000 ml @ 80 mls/hr [id number] IV ; Start at 18:00; Stop 10/30/16 at 11:37; Status DC Ondansetron HCl (Zofran Inj) 4 mg Q8HR PRN IV PUSH NAUSEA Last administered on 10/30/16 22:35; Start 10/29/16 at 18:15 Hydromorphone HCl 0.2 mg 0.2 mg Q4H PRN IV PUSH PAIN; Start 10/29/16 at 18:15 Dextrose/Lactated Ringer's (D5-Lr Inj) 1,000 ml @ 20 mls/hr Q24H IV Last administered on 10/30/16 12:00; Start 10/30/16 at 12:00; Stop 10/31/16 at 11:59 ; Status DC Polyethylene Glycol/ Electrolytes 2000 ml 2,000 ml Q8H PO Last administered on 10/30/16 18:00; Start 10/30/16 at 18:00; Stop 10/31/16 at 02:01; Status DC Lactated Ringer's 1,000 ml @ 30 mls/hr Q24H IV Last administered on 10/31/16 11:25; Start 10/30/16 at 11:45 Sodium Chloride (NS 500 ml Inj) 500 ml @ 30 mls/hr [id number] IV ; Start 10/30/16 at 11:45; Stop 10/31/16 at 11:44; Status DC Insulin Human Regular (NovoLIN R INJ) See Protocol Table ... UNSCH X1 PRN SQ SEE PROTOCOL; Start 10/30/16 at 11:45; Stop 10/31/16 at 11:44; Status DC Metoprolol Tartrate 25 mg 25 mg UNSCH X1 PRN PO SEE LABEL COMMENTS; Start 10/30 at 11:45; Stop 10/31/16 at 11:44; Status DC Sodium Chloride (NS 250 ml Inj) 250 ml @ 15 mls/hr ONCE ONCE IV Last administered on 10/31/16 02:15; Start 10/31/16 at 01:15; Stop 10/31/16 at 17:54 ; Status DC Furosemide (Lasix Inj) 20 mg ONCE ONCE IV Last administered on 10/31/16 04:42 ; Start 10/31/16 at 01:15; Stop 10/31/16 at 01:16; Status DC Propofol (Diprivan 200 Mg/20 ml Inj) 400 mg STK-MED ONCE IV ; Start 10/31/16 at 16:13; Stop 10/31/16 at 17:49; Status DC Levothyroxine Sodium (Synthroid) 100 mcg DAILY@0600 PO Last administered on 05:19; Start 11/01/16 at 06:00 Alprazolam (Xanax) 0.125 mg NOW ONCE PO ; Start 10/31/16 at 20:15; Stop at 20:16; Status DC Miscellaneous (Pill Splitter) 1 ea UNSCH PRN OTHER SEE LABEL COMMENTS; Start at 20:15 A/P Assessment and Plan A/P -rectal bleed s/p colonoscopy with diverticulosis but with no active source of bleeding. monitor for rectal bleed and continue to monitor H/H. GI following. -anemia due to GI bleed- s/p PRBC transfusion- H/H fairly stable. -hypertension/hypothyroidism; hold home meds for now- will resume soon if BP stable. -DVT prophylaxis with SCD's- no chemical prophylaxis due to GI bleed Discharge Planning possible tomorrow if no further GI bleed and remains stable. Twila Clay MD Nov 01, 2016 11:28
[2016-11-01] MEDS: LACTATED RINGER'S 1000 ML IV SCH (11:45)
[2016-11-01 19:29] LABS: HEMATOCRIT 24.9 % (35.0-46.0)
[2016-11-02 00:14] VITALS: BP 120/58; PULSE 82; RESP 18; TEMP 98.6; O2SAT 97
[2016-11-02 04:16] VITALS: BP 107/51; PULSE 68; RESP 18; TEMP 97.3; O2SAT 96
[2016-11-02] MEDS: LEVOTHYROXINE SODIUM 100 MCG TAB PO SCH (05:55)
[2016-11-02 07:12] LABS: HEMATOCRIT 24.7 % (35.0-46.0)
[2016-11-02 08:00] VITALS: BP 134/62; PULSE 75; RESP 18; TEMP 97.6; O2SAT 96
[2016-11-02 08:58] VITALS: PULSE 89
--- NOTE | 2016-11-02 10:30 | HHI.GIFU ---
Subjective Remarks Pt doing well, had formed/dark BM, but no bright red blood per rectum as before. Tolerating diet. Objective Vitals I&O Vital Signs Date Time Temp Pulse Resp B/P Pulse Ox O2 Delivery O2 Flow Rate FiO2 11/02/16 08:58 89 11/02/16 08:00 97.6 75 18 134/62 96 11/02/16 04:16 97.3 68 18 107/51 96 11/02/16 00:14 98.6 82 18 120/58 97 11/01/16 23:30 89 11/01/16 20:52 97.2 88 20 125/60 98 11/01/16 16:00 97.5 79 20 111/58 97 11/01/16 13:06 73 11/01/16 12:00 97.2 80 20 141/62 97 I/O 11/01/16 11/01/16 11/01/16 11/02/16 11/02/16 11/02/16 07:00 15:00 23:00 07:00 15:00 23:00 Intake Total 360 ml 1440 ml 240 ml 240 ml Balance 360 ml 1440 ml 240 ml 240 ml Intake Oral 360 ml 1440 ml 240 ml 240 ml # Voids 3 6 1 2 # Bowel Movements 0 2 Laboratory Laboratory Tests Test 11/01/16 11/02/16 18:30 07:00 Hemoglobin 8.6 8.6 Hematocrit 24.9 24.7 Physical Exam HEENT: Pupils round and reactive to light; normocephalic; atraumatic; no jaundice. Throat is clear. NECK: Neck is supple, no JVD, no lymphadenopathy. ABDOMEN: Soft, nondistended, nontender; no hepatosplenomegaly; bowel sounds are present in all four quadrants. EXTREMITIES: No clubbing, cyanosis, or edema. SKIN: Normal; no rash; no jaundice. PROPERTY SUPERVISOR: No focal deficits; alert and oriented times three. Assessment and Plan Assessment: (1) Anemia (2) GI bleed Plan 1. GI bleeding/anemia - most likely diverticular bleed, colonoscopy with large amount of blood and severe diverticulosis throughout the colon, no active focus of bleed identified. - Hb has remained stable past 48h - avoid NSAID's or anticoagulants - If bleeding recurs would recommend IR consult for possible angiogram with embolization - she can be discharge from GI standpoint at this time 2. All other medical problems to be addressed by primary team GI will sign off. Pt to follow with our office within 2 weeks. Please call with any questions. Thank you for this consult. Problem Qualifiers (1) GI bleed: Qualified Code: K62.5 - Gastrointestinal hemorrhage associated with anorectal source Gerald Pace MD Nov 02, 2016 10:30
--- NOTE | 2016-11-02 11:43 | HHI.PR ---
Subjective Remarks sitting on the chair with no distress. denies abdominal pain, nausea or vomiting. no further active bleed. wants to go home today. Objective Vitals Vital Signs Date Time Temp Pulse Resp B/P Pulse Ox O2 Delivery O2 Flow Rate FiO2 11/02/16 08:58 89 11/02/16 08:00 97.6 75 18 134/62 96 11/02/16 04:16 97.3 68 18 107/51 96 11/02/16 00:14 98.6 82 18 120/58 97 11/01/16 23:30 89 11/01/16 20:52 97.2 88 20 125/60 98 11/01/16 16:00 97.5 79 20 111/58 97 11/01/16 13:06 73 11/01/16 12:00 97.2 80 20 141/62 97 I/O 11/01/16 11/01/16 11/01/16 11/02/16 11/02/16 11/02/16 07:00 15:00 23:00 07:00 15:00 23:00 Intake Total 360 ml 1440 ml 240 ml 240 ml Balance 360 ml 1440 ml 240 ml 240 ml Intake Oral 360 ml 1440 ml 240 ml 240 ml # Voids 3 6 1 2 # Bowel Movements 0 2 Result Diagram: 11/02/16 0700 11/01/16 0705 Imaging Last Impressions GI Bleed Scan Nuclear Medicine 10/29/16 0000 Signed Impressions: Service Date/Time: Saturday, October 29, 2016 20:16 - CONCLUSION: Examination reveals a focus of active bleeding in the right upper quadrant at the hepatic flexure of the colon. Jonathon Huizar MD Objective Remarks GENERAL: This is a well-nourished, well-developed patient, in no apparent distress. CARDIOVASCULAR: Regular rate and regular rhythm without murmurs, gallops, or rubs. RESPIRATORY: Clear to auscultation. Breath sounds equal bilaterally. No wheezes , rales, or rhonchi. GASTROINTESTINAL: Abdomen soft, non-tender, nondistended. Normal, active bowel sounds MUSCULOSKELETAL: Extremities without clubbing, cyanosis, or edema. NEURO: Alert & Oriented x4 to person, place, time, situation. Moves all ext x4 Procedures colonoscopy Medications and IVs Current Medications Sodium Chloride (NS 1000 ml Inj) 1,000 ml @ 1,000 mls/hr Q1H IV Last administered on 10/29/16 18:44; Start 10/29/16 at 16:12; Stop 10/29/16 at 17:11 ; Status DC IV Flush 2 ml 2 ml UNSCH PRN IVF FLUSH AFTER USING IV ACCESS; Start 10/29/16 at 16:15 Pantoprazole Sodium 80 mg/ Sodium Chloride 35 ml @ 420 mls/hr ONCE ONCE IV Last administered on 10/29/16 18:45; Start 10/29/16 at 16:15; Stop 10/29/16 at 16:19; Status DC Pantoprazole Sodium 80 mg/ Sodium Chloride 100 ml @ 10 mls/hr Q10H IV Last administered on 10/30/16 02:17; Start 10/29/16 at 16:15; Stop 10/30/16 at 10:34 ; Status DC Sodium Chloride (NS 250 ml Inj) 250 ml @ 15 mls/hr ONCE ONCE IV Last administered on 10/29/16 19:39; Start 10/29/16 at 18:00; Stop 10/30/16 at 10:39 ; Status DC Pantoprazole Sodium 40 mg 40 mg Q12H IV PUSH ; Start 10/30/16 at 06:00; Stop at 06:00; Status DC Sodium Chloride (NS 1000 ml Inj) 1,000 ml @ 80 mls/hr [id number] IV ; Start at 18:00; Stop 10/30/16 at 11:37; Status DC Ondansetron HCl (Zofran Inj) 4 mg Q8HR PRN IV PUSH NAUSEA Last administered on 10/30/16 22:35; Start 10/29/16 at 18:15 Hydromorphone HCl 0.2 mg 0.2 mg Q4H PRN IV PUSH PAIN; Start 10/29/16 at 18:15 Dextrose/Lactated Ringer's (D5-Lr Inj) 1,000 ml @ 20 mls/hr Q24H IV Last administered on 10/30/16 12:00; Start 10/30/16 at 12:00; Stop 10/31/16 at 11:59 ; Status DC Polyethylene Glycol/ Electrolytes 2000 ml 2,000 ml Q8H PO Last administered on 10/30/16 18:00; Start 10/30/16 at 18:00; Stop 10/31/16 at 02:01; Status DC Lactated Ringer's 1,000 ml @ 30 mls/hr Q24H IV Last administered on 10/31/16 11:25; Start 10/30/16 at 11:45 Sodium Chloride (NS 500 ml Inj) 500 ml @ 30 mls/hr [id number] IV ; Start 10/30/16 at 11:45; Stop 10/31/16 at 11:44; Status DC Insulin Human Regular (NovoLIN R INJ) See Protocol Table ... UNSCH X1 PRN SQ SEE PROTOCOL; Start 10/30/16 at 11:45; Stop 10/31/16 at 11:44; Status DC Metoprolol Tartrate 25 mg 25 mg UNSCH X1 PRN PO SEE LABEL COMMENTS; Start 10/30 at 11:45; Stop 10/31/16 at 11:44; Status DC Sodium Chloride (NS 250 ml Inj) 250 ml @ 15 mls/hr ONCE ONCE IV Last administered on 10/31/16 02:15; Start 10/31/16 at 01:15; Stop 10/31/16 at 17:54 ; Status DC Furosemide (Lasix Inj) 20 mg ONCE ONCE IV Last administered on 10/31/16 04:42 ; Start 10/31/16 at 01:15; Stop 10/31/16 at 01:16; Status DC Propofol (Diprivan 200 Mg/20 ml Inj) 400 mg STK-MED ONCE IV ; Start 10/31/16 at 16:13; Stop 10/31/16 at 17:49; Status DC Levothyroxine Sodium (Synthroid) 100 mcg DAILY@0600 PO Last administered on 05:55; Start 11/01/16 at 06:00 Alprazolam (Xanax) 0.125 mg NOW ONCE PO ; Start 10/31/16 at 20:15; Stop at 20:16; Status DC Miscellaneous (Pill Splitter) 1 ea UNSCH PRN OTHER SEE LABEL COMMENTS; Start at 20:15 A/P Assessment and Plan A/P -rectal bleed s/p colonoscopy with diverticulosis but with no active source of bleeding. avoid NSAIDs. GI follow-up appreciated and cleared for discharge. -anemia due to GI bleed- s/p PRBC transfusion- H/H fairly stable. -hypertension/hypothyroidism; resume home meds upon discharge. -DVT prophylaxis with SCD's- no chemical prophylaxis due to GI bleed Discharge Planning dc home today. see med list. f/u; pcp and GI. d/w the patient and RN. Twila Clay MD Nov 02, 2016 11:43
--- NOTE | 2016-11-02 11:44 | HHI.DCPOC ---
Discharge Care Plan Diagnosis: (1) GI bleed (2) Anemia Your Health Problems Are: Bleeding Tendency Goals to Promote Your Health * To prevent worsening of your condition and complications * To maintain your health at the optimal level Directions to Meet Your Goals Take your medications as prescribed Follow your dietary instruction Follow activity as directed Keep your appointments as scheduled Take your immunizations and boosters as scheduled If your symptoms worsen call your PCP, if no PCP go to Urgent Care Center or Emergency Room Smoking is Dangerous to Your Health. Avoid second hand smoke Call the 24-hour hour crisis hotline for domestic abuse at Twila Clay MD Nov 02, 2016 11:44
[2016-11-02] MEDS: LACTATED RINGER'S 1000 ML IV SCH (11:45)
--- NOTE | 2016-11-02 11:45 | HHI.DS ---
Discharge Summary Admission Date Oct 29, 2016 at 17:59 Discharge Date: Nov 02, 2016 Admitting Diagnosis GI bleed (1) GI bleed ICD Code: K92.2 Diagnosis: Principal (2) Anemia ICD Code: D64.9 Diagnosis: Principal Procedures colonoscopy Brief History - From Admission patient is a 76 y/o female with history of GI bleed in the past, presented to ER with rectal bleed. she says that she started to have rectal bleed two days ago. she's had several episodes of rectal bleed since then. she had nausea but no vomiting. she's complaining of mild abdominal cramps. she's weak. she denies any sob or chest pain.she says that she had endoscopy and colonoscopy about eight years ago. she says that she's being followed up by for her hernia and she was supposed to have a CT of the abdomen last week which she had to cancel. CBC/BMP: 11/02/16 0700 11/01/16 0705 Significant Findings Laboratory Tests Test 10/30/16 10/31/16 10/31/16 10/31/16 16:35 00:16 08:53 12:50 Hemoglobin 7.1 GM/DL 6.2 GM/DL 9.9 GM/DL 8.8 GM/DL (11.6-15.3) (11.6-15.3) (11.6-15.3) (11.6-15.3) Hematocrit 21.1 % 18.4 % 28.7 % 26.1 % (35.0-46.0) (35.0-46.0) (35.0-46.0) (35.0-46.0) Red Blood Count 3.31 MIL/MM3 (4.00-5.30) Platelet Count 140 TH/MM3 (150-450) Test 10/31/16 11/01/16 11/01/16 11/01/16 18:44 00:57 07:05 18:30 Hemoglobin 9.3 GM/DL 8.2 GM/DL 8.4 GM/DL 8.6 GM/DL (11.6-15.3) (11.6-15.3) (11.6-15.3) (11.6-15.3) Hematocrit 27.1 % 23.2 % 23.8 % 24.9 % (35.0-46.0) (35.0-46.0) (35.0-46.0) (35.0-46.0) Estimat Glomerular Filtration 74 ML/MIN (>89) Rate Random Glucose 136 MG/DL (74-106) Calcium Level 6.4 MG/DL (8.5-10.1) Protein Corrected Calcium 7.5 MG/DL (8.5-10.1) Total Protein 4.8 GM/DL (6.4-8.2) Test 11/02/16 07:00 Hemoglobin 8.6 GM/DL (11.6-15.3) Hematocrit 24.7 % (35.0-46.0) Imaging Last Impressions GI Bleed Scan Nuclear Medicine 10/29/16 0000 Signed Impressions: Service Date/Time: Saturday, October 29, 2016 20:16 - CONCLUSION: Examination reveals a focus of active bleeding in the right upper quadrant at the hepatic flexure of the colon. Jonathon Huizar MD PE at Discharge GENERAL: This is a well-nourished, well-developed patient, in no apparent distress. CARDIOVASCULAR: Regular rate and regular rhythm without murmurs, gallops, or rubs. RESPIRATORY: Clear to auscultation. Breath sounds equal bilaterally. No wheezes , rales, or rhonchi. GASTROINTESTINAL: Abdomen soft, non-tender, nondistended. Normal, active bowel sounds MUSCULOSKELETAL: Extremities without clubbing, cyanosis, or edema. NEURO: Alert & Oriented x4 to person, place, time, situation. Moves all ext x4 Hospital Course -rectal bleed s/p colonoscopy with diverticulosis but with no active source of bleeding. avoid NSAIDs. GI follow-up appreciated and cleared for discharge. -anemia due to GI bleed- s/p PRBC transfusion- H/H fairly stable. -hypertension/hypothyroidism; resume home meds upon discharge. -DVT prophylaxis with SCD's- no chemical prophylaxis due to GI bleed Pt Condition on Discharge: Good Discharge Disposition: Discharge Home Discharge Time: <= 30 minutes Discharge Instructions DIET: Follow Instructions for: Heart Healthy Diet Activities you can perform: Regular-No Restrictions Follow up Referrals: Gastroenterology PCP Follow-up Continued Medications: Levothyroxine (Synthroid) 100 Mcg Tab 100 MCG PO DAILY Thyroid #30 Ref 0 TAB Lisinopril (Lisinopril) 20 Mg Tab 20 MG PO DAILY #30 Ref 0 TAB Twila Clay MD Nov 02, 2016 11:45
[2016-11-02 12:00] VITALS: BP 146/72; PULSE 85; RESP 18; TEMP 96.7; O2SAT 97
--- NOTE | 2016-11-08 17:03 | PQ ---
Physician Query Response Document PATIENT: JEREMY RUSSO : 1940 ADMIT DATE: 10/29/2016 5:59 PM DISCH DATE: 11/02/2016 2:53 PM RESPONDING PROVIDER #: [email or web address] QUERY TEXT: Anemia Type Anemia is documented in the Medical Record. Please specify the cause (includes suspected or probable cause) Such as: -- Due to acute blood loss -- Due to chronic blood loss -- Due to iron deficiency -- Due to postoperative blood loss -- Due to chronic disease -- Other, please specify If you any additional questions/comments and/or concerns please call [facility] Hotline [email or web address] The patient's Clinical Indicators include: Dr. CLAY, patient was admitted with anemia due to Gastrointerstinal bleeding. Patient's H/H on admission were 6.6/20.1. Patient recieved a total of 5 units RBC durring hospital stay. Please review the question below and answer to the best of your ability. Query created by: Byron Souza on 11/08/2016 2:16 PM RESPONSE TEXT: Anemia due to acute blood loss. Electronically signed by: Twila Clay MD 11/08/2016 4:59 PM
== END 2016-11-02 14:53 | disposition home or self-care (01) | DRG 379 ==
LOC: NEPC 16:01 → NEDA 17:59 → N05A 22:53
PROVIDERS: ADMIT Internal Medicine; ATTEND Internal Medicine
PROC: 30233N1 Transfusion of Nonautologous Red Blood Cells into Peripheral Vein, Percutaneous Approach (ICD-10-PCS; 2016-10-29)
PROC: 0DJD8ZZ Inspection of Lower Intestinal Tract, Via Natural or Artificial Opening Endoscopic (ICD-10-PCS; principal; 2016-10-31 16:00)
DX: K57.31 Diverticulosis of large intestine without perforation or abscess with bleeding (principal); I10 Essential (primary) hypertension; E03.9 Hypothyroidism, unspecified; M19.90 Unspecified osteoarthritis, unspecified site
CPT/HCPCS: 36430; 76937; 78278; 80048; 80053; 83690; 84155; 85014; 85018; 85025; 85610; 85730; 86850; 86900; 86901; 86920; 93005; A9560; C9113; J1940; J2405; J7030; J7050; J7120; J7121; P9016